=== PATIENT | male | born 1995 | race Caucasian/White ===

== ENCOUNTER 2021-05-24 11:54 | Emergency (ER) | payer OTHER, SELFPAY ==
[2021-05-24 11:56] VITALS: BP 138/85; PULSE 61; RESP 16; TEMP 37; O2SAT 99; BMI 20.2
--- NOTE | 2021-05-24 14:00 | PC.NURSE ---
cleansed with soap and water, dermabond and steristrips to site. pt tolerated well,.
--- NOTE | 2021-05-24 14:08 | ED_ITS ---
HPI - Extremity Injury (Upper) General Chief Complaint: Extremity Injury, Upper Stated Complaint: Laceration Lt Thumb Time Seen by Provider: 05/24/21 14:02 Source: patient Mode of arrival: Ambulatory Limitations: no limitations History of Present Illness HPI narrative: This is a 25-year-old male comes with complaint of laceration to his left thumb. Patient states that they were removing an oven door when the hinge fell sort of depression the skin. He states generally land on the bone at all. He does not have any bony pain. He states when he moves some it does not really appear to gapped there is injury to the skin. He denies medical issues. No major surgeries. States his tetanus is up-to-date. Patient denies any numbness, tingling or weakness. He states there is some swelling. Review of Systems Review of Systems ROS Unobtainable: All systems reviewed & are unremarkable except as noted in HPI and below Patient History Social History Smoking Status: Never smoker Smoking Status: Never smoker Substance Use Type: does not use Exam Narrative Exam Narrative: GENERAL: Alert and oriented x three, male in mild distress. HEENT: Head normocephalic, atraumatic, EOMI, pupils reactive, face symmetric, moist mucous membranes NECK: Supple, full range of motion EXTREMITIES: Normal range of motion, no clubbing or edema. Neurovascularly intact. Patient has a abrasion over the thenar eminence that is superficial, he also has a small superficial laceration that is about a 0.5 cm in circumference with little bit of abrasion but does not gape there appears to be a small area of puncture but does not appear deep. Patient has full range of motion and wound stays closed without any gap inter changes. He does not any bony tenderness. Cap refill less than 2 seconds in all 5 fingers. NEUROLOGICAL: Cranial nerves II through XII grossly intact. Moving all extremities SKIN: Warm, dry, no petechiae, no rashes or lesions. Initial Vital Signs Initial Vital Signs: Vital Signs Temperature 98.6 F 05/24/21 11:56 Pulse Rate 61 05/24/21 11:56 Respiratory Rate 16 05/24/21 11:56 Blood Pressure 138/85 05/24/21 11:56 Pulse Oximetry 99 05/24/21 11:56 Course Vital Signs Vital signs: Vital Signs - 8 hr 05/24/21 11:56 Temperature 98.6 F Pulse Rate 61 Respiratory Rate 16 Blood Pressure 138/85 Pulse Oximetry 99 MDM - Extremity Injury (Upper) MDM Narrative Medical decision making narrative: This is a 25-year-old male with thumb injury to the left thumb sort of a crush injury of the skin. Patient has a superficial laceration but it does not gape I am unable to pull it apart on examination over the thenar eminence. Small amount of dermabond applied for reinforcement. Discussed with patient he defers suture to reinforce. Discharge Plan Departure Patient Disposition: Home Clinical Impression: Superficial laceration of hand Instructions: DI for Laceration Repair-Skin Glue Activity Restrictions/Additional Instructions: Wound Care: Keep wound(s) clean and dry. Wash daily with soap and water only. Do not use over the counter products (alcohol or peroxide)on the wounds unless instructed by a physician. If wound condition worsens (increased/expanding redness, developing fluid blisters, or worsening pain), either contact your doctor for an urgent re- assessment , or return to the Emergency Department. Return to the Emergency Department for any new or worsening symptoms. Return if fever greater than 100.4 Fahrenheit, increased swelling, increasing pain or worsening symptoms such as increased discharge or spreading redness.
== END 2021-05-24 14:10 | disposition home or self-care (01) ==
PROVIDERS: Emergency Provider Emergency Medicine
DX: S61.012A Laceration without foreign body of left thumb without damage to nail, initial encounter (principal); W26.8XXA Contact with other sharp object(s), not elsewhere classified, initial encounter
CPT/HCPCS: 99281; 99282